=== PATIENT | female | born 1990 | race Caucasian/White ===

== ENCOUNTER 2021-01-22 09:27 | Emergency (ER) | payer OTHER ==
[~2021-01-22] VITALS: Ht 167.6 cm; Wt 83.9 kg
[2021-01-22 09:27] VITALS: BP 110/59
--- NOTE | 2021-01-22 09:27 | NUR ---
BIBA TO BED 10
--- NOTE | 2021-01-22 09:53 | NUR ---
30 YEAR OLD FEMALE BIBA FROM HOME FOR COMPLAINS OF NAUSEA, VOMITTING X YESTERDAY. PT STATES SHE WAS DRINKING YESTERDAY AND SMOKING WEED. PT WAS GIVEN 4MG ZOFRAN BY EMS PRIOR TO ARRIVAL. PT DENIES BLOOD. PT AOX4, BREATHING EVEN AND UNLABORED, SKIN WARM AND DRY. BED IN LOWEST POSITION, LOCKED, BED RAIL UPX1. PMH - DENIES ALLERGIES - NKA
--- NOTE | 2021-01-22 09:53 | NUR ---
DR DELAROSA AT BEDSIDE EXAMINING PATIENT
[2021-01-22] MEDS ORDERED: NACL 0.9% 1,000 ML IV ONE (10:00)
[2021-01-22] MEDS ORDERED: METOCLOPRAMIDE 10 MG/2 ML INJ VIAL IVP ONE (10:00)
[2021-01-22] MEDS ORDERED: diphenhydrAMINE 50 MG/ML VIAL IVP ONE (10:00)
[2021-01-22] MEDS ORDERED: diphenhydrAMINE 50 MG/ML VIAL ONE (10:04)
[2021-01-22] MEDS ORDERED: METOCLOPRAMIDE 10 MG/2 ML INJ VIAL ONE (10:05)
[2021-01-22 10:24] LABS: BASOPHILS # (AUTO) 0.1 K/uL (0.00-0.22); BASOPHILS % (AUTO) 0.9 % (0.0-2.0); EOSINOPHILS % (AUTO) 0.1 % (0.0-4.0); HEMATOCRIT 42.2 % (36-48); HEMOGLOBIN 14.3 g/dL (12.0-16.0); LYMPHOCYTES # (AUTO) 1.4 K/uL (2.5-16.5); LYMPHOCYTES % (AUTO) 19.1 % (20.5-51.1); MEAN CORPUSCULAR HEMOGLOBIN 32 pg (27-31); MEAN CORPUSCULAR HGB CONC 34 g/dL (33-37); MEAN CORPUSCULAR VOLUME 93.1 fL (80-94); MONOCYTES # (AUTO) 0.3 K/uL (0.8-1.0); MONOCYTES % (AUTO) 3.5 % (1.7-9.3); NEUTROPHILS # (AUTO) 5.7 K/uL (1.8-7.7); NEUTROPHILS % (AUTO) 76.4 % (42.2-75.2); PLATELET COUNT (AUTO) 335 K/uL (140-450); RED BLOOD CELL COUNT(AUTO) 4.53 MIL/uL (4.20-5.40); RED CELL DISTRIBUTION WIDTH 13.4 % (11.6-13.7); WHITE BLOOD COUNT (AUTO) 7.4 K/uL (4.8-10.8)
[2021-01-22 10:49] LABS: ALBUMIN 4.1 g/dL (3.4-5.0); ANION GAP 22.4 (8-16); CARBON DIOXIDE 19.1 mmol/L (21-32); POTASSIUM 3.5 mmol/L (3.5-5.1); TOTAL BILIRUBIN 0.4 mg/dL (0.0-1.0)
[2021-01-22] MEDS ORDERED: ONDA-24 PO (12:31)
[2021-01-22 12:40] VITALS: BP 110/59
== END 2021-01-22 12:41 | disposition home or self-care (01) ==
LOC: MED 09:27
DX: R11.2 Nausea with vomiting, unspecified (principal); R10.9 Unspecified abdominal pain; F12.90 Cannabis use, unspecified, uncomplicated
CPT/HCPCS: 36415; 80053; 81025; 83690; 85025; 96361; 96374; 96375; 99284; J1200; J2765; J7030